=== PATIENT | female | born 1980 | race Caucasian/White ===

== ENCOUNTER 2023-04-15 20:23 | Emergency (ER) | payer OTHER, SELFPAY ==
[2023-04-15 20:41] VITALS: BP 152/90; PULSE 109; RESP 16; TEMP 37.1; O2SAT 100; BMI 19.9
== END 2023-04-15 23:35 | disposition left against medical advice (07) ==
PROVIDERS: Emergency Provider Emergency Medicine
CPT/HCPCS: 99281